=== PATIENT | female | born 1970 | race Two or more races ===

== ENCOUNTER → 2020-11-07 | Outpatient (CLI) | payer BC ==
[2015-03-06 02:15] VITALS: BP 125/62
--- NOTE | 2020-11-07 10:48 | KCIC ---
EXAM: Bilateral knees, 3 views; lumbosacral spine, 5 views. HISTORY: Pain. COMPARISON: None. FINDINGS: Bilateral knees: 3 views of both knees are obtained. There is no acute fracture, dislocation or sublu xation. There is no joint effusion. Lumbosacral spine, 5 views lumbar spine and sacrum are obtained. There is no listhesis. The vertebral bodies are normal in height. There is mild multilevel endplate remodeling. There is facet arthropath y at the lower lumbar levels. There are fallopian tube closure devices overlying the pelvis. IMPRESSION: 1. No acute osseous finding. 2. Mild degenerative endplate remodeling and facet arthropathy involving the lumbar spine, primarily at the lower lumbar levels. Electronically signed by: Ana Alexander MD (11/07/2020 10:45 AM) [id number]
== END ==
LOC: KCIC 10:10
PROVIDERS: ATTEND Family Medicine
DX: M25.561 Pain in right knee (principal); M25.562 Pain in left knee; M54.5 Low back pain; M47.816 Spondylosis without myelopathy or radiculopathy, lumbar region
CPT/HCPCS: 72110; 73562-50